=== PATIENT | female | born 1995 ===

== ENCOUNTER 2021-03-16 13:17 | Emergency (ER) | payer SELFPAY ==
[~2021-03-16] VITALS: Ht 172.7 cm; Wt 66.0 kg
[2021-03-16] MEDS ORDERED: ACETAMINOPHEN 325MG TABLET PO ONE (14:15)
[2021-03-16] MEDS ORDERED: TETANUS, DIPHTHERIA, PERTUSSIS VAC/PF 0.5ML (>7YR OLD) IM ONE (15:15)
[2021-03-16] MEDS ORDERED: LIDOCAINE HCL/PF 1% 10 MG/ML 5ML VIAL IJ ONE (15:15)
[2021-03-16] MEDS ORDERED: BACITRACIN ZINC OINT UDPKT TOP ONE (15:15)
[2021-03-16 16:40] VITALS: BP 110/70
== END 2021-03-16 16:40 | disposition home or self-care (01) ==
LOC: ER 13:17
DX: S61.411A Laceration without foreign body of right hand, initial encounter (principal); S60.511A Abrasion of right hand, initial encounter; M79.641 Pain in right hand; V00.141A Fall from scooter (nonmotorized), initial encounter; Y93.89 Activity, other specified; Y92.9 Unspecified place or not applicable
CPT/HCPCS: 12001; 73130; 90471; 90715; 99283; A4217; J3490; Z7610